=== PATIENT | female | born 1935 | race Caucasian/White ===

== ENCOUNTER 2020-05-02 11:33 | Inpatient (IN) | payer OTHER ==
[~2020-05-02] VITALS: Ht 170.2 cm; Wt 95.3 kg
--- NOTE | ~2020-05-02 | EMS ---
[address] [address] EMS Patient Care Report Name: MARIBEL MARTÍNEZ Room #: REG RADHA Zamora#: [id number] Admission: 05/02/20 Attend Phys: Discharge: Date of : 33 Report #: [id number] THIS REPORT FOR: //name// Report Transmitted: 05/02/2020 11:32 EMS Care Summary [place], [place]/[facility] Incident [id number] @ 05/02/2020 11:09 Incident Location [id number] [place] [address]-A Patient MARIBEL MARTÍNEZ Female, 84 Years 1935 Patient [address] [address] [place], [place] [id number] Patient History Dementia,Novel Coronavirus (COVID-19), Patient Allergies No known allergies, Patient Medications Famotidine, Acetaminophen, Chief Complaint respiratory distress Disposition Transported No Lights/[place] Dispatch Reason Breathing Problem Transported To [facility] Narrative nh staff stated pt has had dyspnea x1 hr. nh staff stated pt was previously covid pos but is negative as of march. pt found semi fowlers in bed and alert to painful stimuli gcs 11. pt presented in mild dyspnea. pt was audibly [facility] [address] [place] [address] EMS Patient Care Report Name: MARIBEL MARTÍNEZ Room #: REG RADHA Zamora#: [id number] Admission: 05/02/20 Attend Phys: Discharge: Date of : 33 Report #: [id number] congested. pt was on an nc per staff but staff stated pt is not normally on o2. me staff requested pt to be transported to [facility]. pt was transferred onto ems cot and was secured in a semi fowlers position without incident. pt was loaded into ambulance. 65%spo2 ra. pt was administered 15lpm o2 via nrb. iv access was sought after but was not attempted due to no available vasculature. pts spo2 increased to 88%-91%. pt was transported non emergent. transport was uneventful and pt rested on ems cot. audible congested breath sounds remained unchanged. pt care was transferred to appropriate staff and ems goes back in service. Initial Vitals @11:17P: 110,R: 20,BP: 118/70,Pain: 0/10,GCS: 11,SpO2: 65,Revised Trauma: 11, @11:27P: 110,R: 20,BP: 116/70,GCS: 11,SpO2: 89,Revised Trauma: 11, Assessments @11:15MENTAL:No Abnormalities,SKIN:No Abnormalities,HEENT:Head/Face: No Abnormalities,Eyes: No Abnormalities,Neck/Airway: No Abnormalities,LUNG SOUNDS:General: No Abnormalities,Left Upper: No Abnormalities,Right Upper: No Abnormalities,Left Lower: No Abnormalities,Right Lower: No Abnormalities,ABDOMEN:General: No Abnormalities,Left Upper: No Abnormalities,Right Upper: No Abnormalities,Left Lower: No Abnormalities,Right Lower: No Abnormalities,PELVIS//GI:No Abnormalities,EXTREMITIES:Left Arm: No Abnormalities,Right Arm: No Abnormalities,Left Leg: No Abnormalities,Right Leg: No Abnormalities,PULSE:NEURO:No Abnormalities,@11:27MENTAL:No Abnormalities,SKIN:No Abnormalities,HEENT:Head/Face: No Abnormalities,Eyes: No Abnormalities,Neck/Airway: No Abnormalities,LUNG SOUNDS:General: No Abnormalities,Left Upper: No Abnormalities,Right Upper: No Abnormalities,Left Lower: No Abnormalities,Right Lower: No Abnormalities,ABDOMEN:General: No Abnormalities,Left Upper: No Abnormalities,Right Upper: No Abnormalities,Left Lower: No Abnormalities,Right Lower: No Abnormalities,PELVIS//GI:No Abnormalities,EXTREMITIES:Left Arm: No Abnormalities,Right Arm: No Abnormalities,Left Leg: No Abnormalities,Right Leg: No Abnormalities,PULSE:NEURO:No Abnormalities, Impression Acute Respiratory Distress (Dyspnea) Procedures @11:15ALS AssessmentResponse: UnchangedSucceeded@11:18Oxygen FlowRate: 15 Device: Non Re-breather Mask (NRB) Response: ImprovedSucceeded Timeline 11:08,Call Received 11:08,Dispatch Notified 11:09,Dispatched 11:09,En Route 11:14,On Scene [address] [address] EMS Patient Care Report Name: MARIBEL MARTÍNEZ Room #: REG RADHA Zamora#: [id number] Admission: 05/02/20 Attend Phys: Discharge: Date of : 33 Report #: [id number] 11:15,At Patient 11:15,ALS Assessment,Response: UnchangedSucceeded, 11:17,BP: 118/70 M,PULSE: 110,RR: 20 R,SPO2: 65 Ox,ETCO2: ,BG: ,PAIN: 0,GCS: 11, 11:18,Oxygen FlowRate: 15 Device: Non Re-breather Mask (NRB) Response: ImprovedSucceeded, 11:22,Depart Scene 11:27,BP: 116/70 M,PULSE: 110,RR: 20 R,SPO2: 89 Ox,ETCO2: ,BG: ,PAIN: ,GCS: 11, 11:29,At Destination 11:44,Call Closed Disclaimer v1.1 Copyright 2020 [employer] This EMS Care Summary contains data elements from the applicable legal record (which may be displayed differently). It is designed to provide pertinent information for the following purposes: continuity of care, clinical quality, and state data reporting. The complete legal record is available to ED staff and administrators of the receiving hospital in [employer] Patient Tracker. All data is provided "as is."
[2020-05-02 11:43] VITALS: BP 164/52
[2020-05-02 13:21] LABS: BE(vivo) 0.9 mmol/L (-2 to +3); HCO3 27.7 mmol/L (22.0-26.0); PCO2 53.2 mmHg (35.0-45.0); pH 7.334 (7.360-7.450); sO2 94.8 % (92.0-98.0)
[2020-05-02 17:17] VITALS: BP 129/55
[2020-05-02 18:05] VITALS: BP 129/55
[2020-05-02 18:29] VITALS: BP 93/32
--- NOTE | 2020-05-02 18:53 | NUR ---
1830 PT ADMITTED TO ROOM 361, CAME IN WITH MOUTH FULL OF BLOODY, FROTHY SPUTUM, WHICH WE SUCTIONED AT IMMEDIATELY. VITAL SIGNS TAKEN,O2 SAT 85%, ON NRB. PT NONVERBAL, UNABLE TO FOLLOW COMMANDS. CALLED PT FACILITY TO FAX US PT CHART COPY, WAITING FOR PAPERWORK. PER DOCTOR'S NOTES, PT FAMILY DO NOT WANT ANY AGRESSIVE MEASURES, JUST COMFORT MEASURES. 190 HANDOFF REPORT GIVEN TO SUMAYA COCHRAN.
[2020-05-03 04:52] VITALS: BP 77/56
--- NOTE | 2020-05-03 07:22 | NUR ---
ASSUMED PT CARE AROUND 1929. UNRESPONSIVE. 628. CALLED PHYSICIAN AND REPORTED. PRONOUNCED AT BEDSIDE WITH ANOTHER RN. FAMILY CALLED. FAMILY TO CALL BACK WITH ARRANGEMENT. PT STILL IN ROOM 361. MTN NOTIFIED. NO DONER ELIGIBILTY D/T COVID POSITIVE. HOUSE SUP INFORNED.
== END 2020-05-03 06:29 | DRG 177 ==
LOC: ER 11:33 → EROBS 13:28 → 3W 18:11
PROVIDERS: Emergency Medicine; ADMIT Hospitalist; ATTEND Hospitalist
DX: U07.1 COVID-19 (principal); J96.01 Acute respiratory failure with hypoxia; J12.89 Other viral pneumonia; F03.90 Unspecified dementia, unspecified severity, without behavioral disturbance, psychotic disturbance, mood disturbance, and anxiety; Z51.5 Encounter for palliative care; Z66 Do not resuscitate
CPT/HCPCS: 10080